=== PATIENT | female | born 1980 | race Caucasian/White ===

== ENCOUNTER 2016-05-30 20:37 | Emergency (ER) | payer MEDICARE, MEDICAID | END 2016-05-30 21:55 | disposition home or self-care (01) | DX: G43.909 Migraine, unspecified, not intractable, without status migrainosus (principal); F17.210 Nicotine dependence, cigarettes, uncomplicated; F31.9 Bipolar disorder, unspecified; E66.9 Obesity, unspecified; K21.9 Gastro-esophageal reflux disease without esophagitis; Z88.8 Allergy status to other drugs, medicaments and biological substances; Z88.2 Allergy status to sulfonamides; Z91.040 Latex allergy status; Z88.5 Allergy status to narcotic agent; Z79.899 Other long term (current) drug therapy ==

== ENCOUNTER 2016-05-31 15:39 | Emergency (ER) | payer OTHER, MEDICARE, MEDICAID ==
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
== END 2016-05-31 16:40 | disposition home or self-care (01) ==
LOC: ER 15:39
DX: S43.401A Unspecified sprain of right shoulder joint, initial encounter (principal); S20.211A Contusion of right front wall of thorax, initial encounter; F90.9 Attention-deficit hyperactivity disorder, unspecified type; F31.9 Bipolar disorder, unspecified; G40.909 Epilepsy, unspecified, not intractable, without status epilepticus; F17.210 Nicotine dependence, cigarettes, uncomplicated; Z98.890 Other specified postprocedural states; V89.2XXA Person injured in unspecified motor-vehicle accident, traffic, initial encounter; Y92.410 Unspecified street and highway as the place of occurrence of the external cause

== ENCOUNTER 2016-07-28 20:11 | Emergency (ER) | payer MEDICARE, MEDICAID ==
--- NOTE | 2016-08-05 09:43 | ER ---
ADMIT: 07/28/2016 RM/LOC: ER [facility] MR#: [id number] [address] [address] MONICA RODRIGUEZ [address] [place] [address] Emergency Room Report SEX: F AGE: 35 : 1980 DATE: 07/28/2016 ADDENDUM: CHIEF COMPLAINT: Headache. HISTORY OF PRESENT ILLNESS: This is a 35-year-old female, who has a known bulging disk in her neck. It sounds like her pain is actually coming from the neck and then going up into the head. She has no neurological deficit. No numbness or tingling. Her neuro exam is completely normal. I have given her Toradol here in the emergency room, which she said usually helps her. She is on a pain contract, so she does not want any narcotics. I am giving her Toradol 15 mg IM here and then discharging her home. I am having her push fluids, rest, and follow up as needed. CLINICAL IMPRESSION: Migraine headache. EDILBERTO Esquivel / Walker Carlin MD / em JOB #: [id number] CC: Walker Carlin MD, Attending Physician Hipolito Varela MD, Family Physician
== END 2016-07-28 21:11 | disposition home or self-care (01) ==
LOC: ER 20:11
DX: G43.709 Chronic migraine without aura, not intractable, without status migrainosus (principal); F31.9 Bipolar disorder, unspecified; K21.9 Gastro-esophageal reflux disease without esophagitis; J45.909 Unspecified asthma, uncomplicated; H40.9 Unspecified glaucoma; R56.9 Unspecified convulsions; F17.210 Nicotine dependence, cigarettes, uncomplicated; Z79.899 Other long term (current) drug therapy; Z88.8 Allergy status to other drugs, medicaments and biological substances; Z88.5 Allergy status to narcotic agent; Z88.2 Allergy status to sulfonamides; Z91.040 Latex allergy status

== ENCOUNTER 2016-08-23 00:25 | Emergency (ER) | payer MEDICARE, MEDICAID ==
--- NOTE | 2016-08-30 06:48 | ER ---
ADMIT: 08/23/2016 RM/LOC: ER [facility] MR#: [id number] [address] [place] [id number], [place] [id number] MONICA RODRIGUEZ [address] [place] [address] Emergency Room Report SEX: F AGE: 35 : 1980 DATE: 08/23/2016 DIAGNOSIS: Migraine headache. The patient is a 35-year-old female, who presented with typical throbbing migraine headache for the past 13 hours associated with nausea, vomiting, and photophobia. Exam consistent with nontoxic, afebrile, moderately uncomfortable female. Had complete relief of pain with IV fluids, Zofran, Toradol, DHE, and Benadryl. Follow up Dr. Varela as needed. Fransisco Wilkerson MD/ lilianal JOB #: [id number] CC: Fransisco Wilkerson MD, Attending Physician Hipolito Varela MD, Family Physician
== END 2016-08-23 03:07 | disposition home or self-care (01) ==
LOC: ER 00:25
DX: G43.909 Migraine, unspecified, not intractable, without status migrainosus (principal); J45.909 Unspecified asthma, uncomplicated; F32.9 Major depressive disorder, single episode, unspecified; Z88.8 Allergy status to other drugs, medicaments and biological substances; Z88.2 Allergy status to sulfonamides

== ENCOUNTER 2016-09-16 22:21 | Emergency (ER) | payer MEDICARE, MEDICAID ==
--- NOTE | 2016-09-24 11:03 | ER ---
ADMIT: 09/16/2016 RM/LOC: ER [facility] MR#: [id number] [address] [facility] [address] [place] [id number] MONICA RODRIGUEZ [address] [place] [address] Emergency Room Report SEX: F AGE: 35 : 1980 DATE: 09/16/2016 CHIEF COMPLAINT: Migraine. HISTORY OF PRESENT ILLNESS: This is a 35-year-old female, who presents to the ER with complaints of migraine for the past 12 hours. States it is a gradual onset, still present. She has a strong history of migraine headaches. Has tried all of her home prescriptions at this point without improvement. Denies any recent head injuries. No meningitis exposure. No sick contacts. States this is very similar to her previous headaches, rates as an 8/10. States she has sensitivity to light. She has no aura. She does have some neck pain. She says this is chronic, and she needs to have this repaired surgically associated with some nausea. No fevers, chills, problems with vision, weakness, trouble walking, tingling, or numbness. COURSE IN THE EMERGENCY ROOM: GENERAL: The patient was seen and examined. Afebrile and nontoxic, in no acute distress. HEENT: Normocephalic atraumatic. Pupils are equal and reactive. Extraocular muscles are intact. Pharynx is not erythematous. NECK: Soft and supple. She does have a limited range of motion. States she has chronic neck problems. LUNGS: Clear. HEART: Regular. ABDOMEN: Soft and nontender. She is obese. SKIN: Warm and dry. EXTREMITIES: Nontender. No pedal edema. NEURO: She is alert and oriented, appropriate. Cranial nerves, normal as tested. She has normal gait. Motor and sensation are intact in upper and lower extremities compared bilaterally. While in the department, I did have Nursing start an IV. She was given 1 L of bolus of normal saline. She was given Toradol 15 mg IV, Reglan 10 mg IV, Benadryl 25 mg IV. She was allowed to rest. States she has improved, rates the pain as 4/10, and ready for discharge. IMPRESSION: Chronic migraine headaches. DISPOSITION: The patient is discharged home. Increase fluids. Continue home medications. Return with worsening signs or symptoms. Follow up with Dr. Varela as needed. Questions were sought and answered to the best of my ability and to the patient's satisfaction. Discharged in stable condition. EDILBERTO Reyes / Kev Ambrosio MD / modl JOB #: [id number] CC: Kev Ambrosio MD, Attending Physician ADMIT: 09/16/2016 RM/LOC: [facility] MR#: [id number] [address] [place] [id number] MONICA RODRIGUEZ [address] [place] [address] Emergency Room Report SEX: F AGE: 35 : 1980 Hipolito Varela MD, Family Physician
== END 2016-09-17 00:30 | disposition home or self-care (01) ==
LOC: ER 22:21
DX: G43.709 Chronic migraine without aura, not intractable, without status migrainosus (principal); F17.210 Nicotine dependence, cigarettes, uncomplicated; Z88.5 Allergy status to narcotic agent; Z88.6 Allergy status to analgesic agent; Z91.040 Latex allergy status

== ENCOUNTER 2016-12-07 05:32 | Emergency (ER) | payer MEDICARE, MEDICAID | END 2016-12-07 06:55 | disposition home or self-care (01) | DX: J44.1 Chronic obstructive pulmonary disease with (acute) exacerbation (principal); F31.9 Bipolar disorder, unspecified; G40.909 Epilepsy, unspecified, not intractable, without status epilepticus; G43.909 Migraine, unspecified, not intractable, without status migrainosus; F17.210 Nicotine dependence, cigarettes, uncomplicated; Z85.71 Personal history of Hodgkin lymphoma; Z88.2 Allergy status to sulfonamides; Z88.5 Allergy status to narcotic agent; Z88.6 Allergy status to analgesic agent; Z88.8 Allergy status to other drugs, medicaments and biological substances; Z98.890 Other specified postprocedural states; Z91.040 Latex allergy status; Z79.899 Other long term (current) drug therapy ==